=== PATIENT | male | born 1950 | race Caucasian/White ===

== ENCOUNTER 2020-04-11 20:07 | Emergency (ER) | payer MEDICARE ==
[2020-04-11] MEDS ORDERED: Amidate 20 MG/10 ML IV ONE (20:08)
[2020-04-11] MEDS ORDERED: Narcan 0.4 MG/ML IV ONE (20:13)
[2020-04-11 20:27] LABS: Absolute Neutrophil Ct (ANC) 3.59 (1.4-6.9); BASOPHIL % 0.6 % (0.0-0.4); Basophil (Absolute #) 0.04 (0-0.4); Eosinophil % 1.3 % (0.00-5.0); Eosinophil (Absolute #) 0.08 (0-0.5); Hematocrit 39.5 % (42-50); Hemoglobin 13.7 gm/dl (12.5-18.0); Lymphocyte (Absolute #) 1.89 (1.0-4.6); Lymphocytes % 29.9 % (24.0-44.0); Mean Cell Volume 97.3 fl (78-100); Mean Corpuscular Hemoglobin 33.7 pg (26-32); Mean Corpuscular Hgb Concent. 34.7 g/dl (32-36); Monocyte (Absolute #) 0.72 (0.0-1.3); Monocytes % 11.4 % (0.0-12.0); Neutrophil % 56.8 % (36.0-66.0); Platelet Count 143 K/mm3 (150-450); Red Blood Count 4.06 M/mm3 (4.1-5.6); Red Cell Distribution Width 12.5 % (11.5-14.0); White Blood Count 6.3 K/mm3 (4.0-10.5)
[2020-04-11 20:28] LABS: A-aADO2 -7; ABG HEMOGLOBIN 14.4; ABG POTASSIUM 3.1 (3.5-5.1); ABG SITE RIGHT BRACHIAL; ARTERIAL BLD GAS O2 SATURATION 97.6 % (95-100); ARTERIAL BLOOD GAS BASE EXCESS -2.7 (-2.0-2.0); ARTERIAL BLOOD GAS FIO2 21 %; ARTERIAL BLOOD GAS PCO2 40 mmHg (35-45); ARTERIAL BLOOD GAS PO2 107 mmHg (75-100); ARTERIAL BLOOD GAS pH 7.36 (7.35-7.45); CARBOXYHEMOGLOBIN 3.4 % THgb (0.0-6.9); HCO3- 22.6 (22-28); HGB O2 SAT 93.1 g/dF (94-100); Methhemoglobin 1.3 % (1.4-1.5); paO2 pAO1 1.07
[2020-04-11 20:33] LABS: Appearance CLEAR (CLEAR); Bilirubin NEGATIVE (NEGATIVE); Blood NEGATIVE Ery/ul (0-5); Glucose >=500 mg/dL (NEGATIVE); Ketones TRACE (NEGATIVE); Leukocyte Esterase NEGATIVE (NEGATIVE); Mucus SLIGHT /HPF (NEGATIVE); Nitrite NEGATIVE (NEGATIVE); Protein,Urine Dip NEGATIVE (Negative); Specific Gravity 1.015 (1.005-1.025); Urobilinogen NEGATIVE mg/dL (0-1)
[2020-04-11 20:34] LABS: INR 1.2 (0.8-3.0); PROTIME 13.6 SECONDS (8.83-12.87)
[2020-04-11 20:37] LABS: PTT 28.5 SECONDS (24.1-36.1)
[2020-04-11 20:39] LABS: ALBUMIN 3.8 g/dL (3.5-5.0); ALKALINE PHOSPHATASE 54 U/L (38-126); ANION GAP 13.1 MEQ/L (5-15); BLOOD UREA NITROGEN 12 mg/dL (9-20); CHLORIDE 109 mmol/L (98-107); Carbon Dioxide 21 mmol/L (22-30); Creatinine 1 0.61 mg/dL (0.66-1.25); EST GLOMERULAR FILTRATION RATE > 60.0 ML/MIN; Glucose 183 mg/dL (74-106); Potassium 3.6 mmol/L (3.5-5.1); SGOT/AST 28 U/L (17-59); SGPT/ALT 34 U/L (0-50); SODIUM 139 mmol/L (137-145); Total Protein 6.3 g/dL (6.3-8.2)
[2020-04-11 20:46] LABS: Amphetamine,Urine NEGATIVE (NEGATIVE); Barbiturate,Urine NEGATIVE (NEGATIVE); Benzodiazepine,Urine NEGATIVE (NEGATIVE); Cocaine,Urine NEGATIVE (NEGATIVE); Methadone,Urine NEGATIVE (NEGATIVE); Opiate,Urine NEGATIVE (NEGATIVE); PCP,Urine NEGATIVE (NEGATIVE); THC,Urine NEGATIVE (NEGATIVE)
[2020-04-11 20:53] LABS: ETHYL ALCOHOL 349 mg/dL (0-10)
[2020-04-11] MEDS ORDERED: Sodium Chloride 0.9% 1000 ML 1,000 ML ONE (20:53)
[2020-04-11] MEDS ORDERED: Sodium Chloride 0.9% 1000 ML 1,000 ML IV SCH (21:00)
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
[2020-04-11 23:08] LABS: A-aADO2 111; ABG HEMOGLOBIN 15.8; ABG POTASSIUM 3.7 (3.5-5.1); ABG SITE RIGHT BRACHIAL; ARTERIAL BLD GAS O2 SATURATION 98.7 % (95-100); ARTERIAL BLOOD GAS BASE EXCESS 0.2 (-2.0-2.0); ARTERIAL BLOOD GAS FIO2 40 %; ARTERIAL BLOOD GAS PCO2 51 mmHg (35-45); ARTERIAL BLOOD GAS PO2 110 mmHg (75-100); ARTERIAL BLOOD GAS pH 7.33 (7.35-7.45); CARBOXYHEMOGLOBIN 1.2 % THgb (0.0-6.9); HCO3- 26.9 (22-28); HGB O2 SAT 96.5 g/dF (94-100)
[2020-04-12 00:37] LABS: A-aADO2 135; ABG HEMOGLOBIN 15.4; ABG POTASSIUM 3.7 (3.5-5.1); ABG SITE LEFT BRACHIAL; ARTERIAL BLD GAS O2 SATURATION 97.6 % (95-100); ARTERIAL BLOOD GAS BASE EXCESS -0.7 (-2.0-2.0); ARTERIAL BLOOD GAS FIO2 40 %; ARTERIAL BLOOD GAS PCO2 49 mmHg (35-45); ARTERIAL BLOOD GAS PO2 89 mmHg (75-100); ARTERIAL BLOOD GAS pH 7.33 (7.35-7.45); CARBOXYHEMOGLOBIN 0.5 % THgb (0.0-6.9); HCO3- 25.8 (22-28); HGB O2 SAT 95.9 g/dF (94-100); Methhemoglobin 1.2 % (1.4-1.5)
[2020-04-12] MEDS ORDERED: Sodium Chloride 0.9% 1000 ML 1,000 ML ONE (01:26)
[2020-04-12] MEDS ORDERED: Sodium Chloride 0.9% 1000 ML 1,000 ML IV STA (01:30)
[2020-04-12 02:24] LABS: A-aADO2 170; ABG HEMOGLOBIN 13.8; ABG POTASSIUM 3.6 (3.5-5.1); ARTERIAL BLD GAS O2 SATURATION 99.4 % (95-100); ARTERIAL BLD GAS TIDAL VOLUME 700 cc; ARTERIAL BLOOD GAS BASE EXCESS -2.5 (-2.0-2.0); ARTERIAL BLOOD GAS FIO2 50 %; ARTERIAL BLOOD GAS PCO2 35 mmHg (35-45); ARTERIAL BLOOD GAS PO2 143 mmHg (75-100); ARTERIAL BLOOD GAS VENT MODE A/C; CARBOXYHEMOGLOBIN 0.8 % THgb (0.0-6.9); HCO3- 21.7 (22-28); HGB O2 SAT 97.7 g/dF (94-100); Lactic Acid 2.4 (0.4-2.0); Methhemoglobin 0.9 % (1.4-1.5); paO2 pAO1 0.46
[2020-04-12 02:25] LABS: ABG SITE LEFT BRACHIAL; ARTERIAL BLOOD GAS VENT RATE 16 /MIN
[2020-04-12 03:23] VITALS: O2SAT 95
[2020-04-12 03:25] VITALS: BP 124/82; PULSE 74
--- NOTE | 2020-04-12 08:37 | XRAY ---
Indication: Found unresponsive. Stroke. Multiple contiguous axial images obtained through the head without contrast. Comparison: None Age-appropriate global atrophy. No acute intracranial hemorrhage, abnormal extra-axial fluid collection, or mass effect. Fourth ventricle is midline without hydrocephalus. Varma-white matter differentiation preserved. Bony calvarium intact. Minimal mucosal thickening of both maxillary sinuses and 1.5 cm right maxillary sinus polyp/retention cyst. Mastoid air cells are clear. Impression: Atrophy within normal limits for patient's age. No acute intracranial abnormalities. Incidental paranasal sinus disease.
--- NOTE | 2020-04-12 08:39 | XRAY ---
Indication: Found unresponsive. Stroke. Multiple contiguous axial images obtained through the cervical spine. Sagittal and coronal reformatted images obtained. Comparison: None Osseous structures demineralized. Axial images negative for acute fracture, suspicious bony lesions, or spinal canal stenosis. There is mild multilevel degenerative endplate spurring. Also mild/moderate multilevel bilateral degenerative facet hypertrophy. Sagittal and coronal reformatted images demonstrates normal alignment with vertebral body heights/disc spaces maintained. No acute compression fracture, subluxation, or jumped facet. Normal appearing craniocervical junction. Visualized noncontrasted soft tissues demonstrates minimal left carotid calcifications and minimal biapical fibrosis/scarring. CT head reported separately. Impression: 1. Negative for acute fracture/fixation. 2. Osteopenia and multilevel degenerative changes.
--- NOTE | 2020-04-12 08:40 | XRAY ---
Indication: Tube placement. Comparison: None Portable chest demonstrates endotracheal tube tip 4 cm above the sage and right hemidiaphragm elevation with right base subsegmental atelectasis. Remaining heart and lungs unremarkable. Bony thorax intact with mild osteopenia and degenerative changes.
--- NOTE | 2020-04-12 08:45 | XRAY ---
Indication: Found unresponsive. Stroke. Dementia. Blood alcohol 345. Conventional contrast enhanced CTA brain performed using 80 cc Isovue 370 contrast. Two-dimensional sagittal and coronal reformatted images obtained. Comparison: None CT head without contrast reported separately. Distal internal carotid arteries are normal in course and caliber with normal carotid terminus. Normal branching A1 and M1 segments bilaterally. More distal anterior cerebral, middle cerebral, anterior communicating, and posterior communicating arteries are normal in CTA appearance. Posterior circulation demonstrates bilaterally patent distal vertebral arteries with the right slightly larger in size. Normal CTA appearance to the basilar artery with normal branching posterior cerebral and superior cerebellar arteries bilaterally. Venous system unremarkable. Whole brain images are negative for abnormal enhancing intra or extra-axial mass. Impression: Normal CTA brain with contrast exam. Comment: Preliminary interpretation was made by [facility]. No critical discrepancy.
== END 2020-04-12 02:30 | disposition short-term general hospital (02) ==
LOC: ED 20:07
DX: F10.129 Alcohol abuse with intoxication, unspecified (principal); F03.90 Unspecified dementia, unspecified severity, without behavioral disturbance, psychotic disturbance, mood disturbance, and anxiety; Z79.899 Other long term (current) drug therapy; E10.9 Type 1 diabetes mellitus without complications
CPT/HCPCS: 36000; 36415; 36600; 51702; 70450; 70496; 71045; 72125; 80053; 80307; 81001; 82375; 82803; 82962; 83605; 84484; 85025; 85610; 85730; 87086; 93005; 93041; 94002; 94760; 94799; 96360; 96361; 96374; 99285; 99291; 99292; G0480; 96375; J2310

== ENCOUNTER 2023-12-23 17:24 | Emergency (ER) | payer MEDICARE ==
[2023-12-23 17:39] VITALS: RESP 18; TEMP 96
--- NOTE | 2023-12-23 17:48 | ERPHSYRPT ---
- History of Present Illness Time Seen by Provider: 12/23/23 17:30 Source: patient, other () Exam Limitations: no limitations Patient Subjective Stated Complaint: Laceration Triage Nursing Assessment: Patient ambulated back to ED and transferred self to bed. Patient A+O X 3 with intermittent confusion. Patient has dx of dementia per . Patient's reports patient was standing on a trailer that hauls water when he was standing on trailer and he was taking straps off and a strap flew and cut the left side of head. Patient has 3.5cm laceration to left side of head. Patient denies pain or discomfort. Physician History: patient is a 73-year-old gentleman who slipped off the back of a low trailer hitting his left parietal area causing a 3.5 cm lacerations. There was no LOC, and pain is minimal. He has a mild headache but denies nausea, vomiting, cervical pain, thoracic pain, lumbar pain, chest pain, abdominal pain, upper extremity pain, bilateral hip pain, or lower extremity pain. He is not on any anticoagulants. Occurred: just prior to arrival Severity: mild Head Injury Location: parietal ( Left parietal) Method of Injury: fell Loss of Consciousness: no loss of consciousness Associated Symptoms: denies symptoms Allergies/Adverse Reactions: No Known Drug Allergies Allergy (Verified 12/23/23 17:30) Home Medications: Aspirin EC 81 mg [Ecotrin 81 mg] 81 mg PO DAILY 04/11/20 [History] Atorvastatin Calcium 40 mg PO HS 04/11/20 [History] Cetirizine HCl 10 mg PO DAILY 04/11/20 [History] Cholecalciferol (Vitamin D3) [Vitamin D3] 1,000 unit PO DAILY 04/11/20 [History] Donepezil HCl 10 mg PO HS 04/11/20 [History] Magnesium 250 mg PO DAILY 04/11/20 [History] Meclizine HCl 25 mg [Antivert 25 mg] 25 mg PO TID 04/11/20 [History] Memantine HCl 10 mg PO BID 04/11/20 [History] Metformin HCl 850 mg [Glucophage 850 MG] 850 mg PO BID 04/11/20 [History] [place]-3 Fatty Acids/Fish Oil [Fish Oil 1,000 mg Capsule] 1,000 mg PO DAILY 10/12/20 [History] glipiZIDE [Glipizide] 5 mg PO DAILY 04/11/20 [History] Hx Tetanus, Diphtheria Vaccination/Date Given: No Hx Influenza Vaccination/Date Given: No Hx Pneumococcal Vaccination/Date Given: No Immunizations Up to Date: Yes Travel Risk - International Travel Have you traveled outside of the country in past 3 weeks: No - Emerging Infectious Disease Are you exhibiting symptoms associated with any current EIDs: No - Review of Systems Constitutional: No Symptoms Eyes: No Symptoms Ears, Nose, & Throat: No Symptoms Respiratory: No Symptoms Cardiac: No Symptoms Abdominal/Gastrointestinal: No Symptoms Genitourinary Symptoms: No Symptoms Musculoskeletal: No Symptoms Skin: No Symptoms Psychological: No Symptoms Endocrine: No Symptoms Hematologic/Lymphatic: No Symptoms Immunological/Allergic: No Symptoms - Past Medical History Pertinent Past Medical History: Yes Neurological History: Dementia ENT History: Cataracts Cardiac History: High Cholesterol, Myocardial Infarction (HI) Respiratory History: No Pertinent History Endocrine Medical History: Diabetes Type I Musculoskeletal History: Arthritis GI Medical History: No Pertinent History History: No Pertinent History Psycho-Social History: No Pertinent History Male Reproductive Disorders: No Pertinent History Other Medical History: Dementia - Past Surgical History Past Surgical History: Yes Neuro Surgical History: No Pertinent History Cardiac: Cardiac Catheterization Respiratory: No Pertinent History Gastrointestinal: Appendectomy Genitourinary: No Pertinent History Musculoskeletal: No Pertinent History Male Surgical History: No Pertinent History Significant Family History: no pertinent family hx - Social History Smoking Status: Never smoker Exposure to second hand smoke: No Drug Use: none Patient Lives Alone: No - Social Determinants of Health Will the patient participate in the screening: Yes Do you worry about a steady place to live?: No Do you have any problems with any of the following?: No known problems In the past 12 months,have you had to go without utilities?: No Transportation Issues: No Has anyone in your support network made you feel unsafe?: No Have you or anyone in your house had to go without enough: No - Nursing Vital Signs Nursing Vital Signs: Initial Vital Signs Temperature 96.0 F 12/23/23 17:30 Pulse Rate 72 12/23/23 17:30 Respiratory Rate 18 12/23/23 17:30 Blood Pressure 115/81 12/23/23 17:30 O2 Sat by Pulse Oximetry 96 12/23/23 17:30 Pain Scale Pain Intensity 0 WNL - Shaan Coma Score Best Eye Response ([place]): (4) open spontaneously Best Verbal Response ([place]): (5) oriented Best Motor Response ([place]): (6) obeys commands Shaan Total: 15 - Physical Exam General Appearance: no apparent distress Head Injury: lacerations ( 3.5 cm laceration left parietal area) Eye Exam: bilateral eye: normal inspection, PERRL, EOMI ENT Exam: airway nml, No evidence of ENT injury, No clear fluid (ears), No clear fluid (nose) Neck Exam: supple, trachea midline, normal inspection ( C-spine nontender to palpate) Cardiovascular/Respiratory Exam: chest non-tender, normal breath sounds, regular rate/rhythm, heart sounds normal Gastrointestinal/Abdominal Exam: soft, non tender Back Exam: normal inspection, vertebral tenderness ( no T or L-spine tenderness palpation) Extremity Exam: non-tender, normal range of motion, normal capillary refill Mental Status Exam: alert, oriented x 3, cooperative transit mechanic Exam: normal hearing, normal speech, PERRL Coordination/Gait Exam: normal gait, negative Romberg's sign Motor/Sensory Exam: no motor deficit, no sensory deficit, no pronator drift, negative Babinski's sign, CN II-XII intact, No pronator drift (R), No pronator drift (L), No sensory deficit DTR Exam: bicep (R): 2+, bicep (L): 2+ Skin Exam: normal color, warm, dry Lymphatic Exam: No adenopathy SpO2 Interpretation: normal SpO2: 96 O2 Delivery: Room Air Procedures - Laceration/Wound Repair Parietal Time of Procedure: 23:03 Wound Location: Left (Left parietal) Wound Length (cm): 3 Wound's Depth, Shape: linear Wound Explored: clean Irrigated: Yes Hibiclens Prep: Yes Wound Repaired With: Regent ( dewayne x 6) Layer Closure?: No Sterile Dressing Applied?: No - Course Nursing assessment & vital signs reviewed: Yes - CT Exams Head CT Interpretation: Discussed w/radiologist (Tiny left scalp laceration otherwise negative per Dr. Dominguez) Ordered Tests: Active Orders 24 hr Category Date Time Status HEAD WITHOUT CONTRAST [CT] Stat Exams 12/23/23 17:43 Taken Medication Summary Discontinued Medications Generic Name Dose Route Start Last Admin Trade Name Freq PRN Reason Stop Dose Admin Diphtheria/Tetanus/Acell Pertussis 0.5 ml 12/23/23 17:44 12/23/23 18:28 Tdap --Diph,Pertuss(Acell),Tet Vac/Pf 0.5 Ml Vial IM 12/23/23 17:45 0.5 ml .ONCE ONE Administration Diphtheria/Tetanus/Acell Pertussis Confirm 12/23/23 18:26 Tdap --Diph,Pertuss(Acell),Tet Vac/Pf 0.5 Ml Vial Administered 12/23/23 18:27 Dose 0.5 ml IM .[facility] ([employer] ONE - Progress Progress: improved Progress Note: 12/23/23 19:29 nursing note and vital signs reviewed. No food or housing insecurity noted. Additional history per . CT result reviewed and shared with patient/. 3 cm left parietal scalp laceration irrigated and cleansed with Hibiclens per nursing/dewayne x 6 per ER physician/no complications/patient agreed to staple without local anesthetic which tends to hurt more/ advised to have dewayne removed in 10 days/ keep dry for 3 days and then gently wash 1-2 times a day with mild soap and water without scrubbing/ advised to watch for signs of infection- increasing pain, any pus, temperature greater 100.5, or increasing redness. Serial neurologic exams in ER without focal weakness and a Glascow co ma score 15. Discharged in stable condition. Counseled pt/family regarding: diagnosis, need for follow-up, rad results Medical Desision Making - Independent Historian Additional History obtained from: Spouse - Diagnostic Testing Radiological Interpretation: Reviewed by me - Risk of complications Low Risk: Low risk of morbidity from additional dx testing or treatment The pt has a mod risk of morbidity or mortality based on: Need for prescription drug management - Departure Departure Disposition: Home Clinical Impression: Scalp laceration, Minor closed head injury Condition: Stable Critical Care Time: No Referrals: NICKI GONZALEZ MD [Primary Care Provider] - Follow up/PCP as directed Instructions: Laceration Repair With Dewayne (DC), Minor Head Injury, Adult ED Additional Instructions: Keep laceration dry for 3 days, then gently wash with mild soap and water 1-2 times a day but do not scrub Regent out in 10 days. Watch for signs of infection- increasing pain, any pus, increasing redness, or temperature greater 100.5. Tylenol for pain
[2023-12-23] MEDS ORDERED: Adacel Vial IM ONE (18:26)
[2023-12-23] MEDS: Adacel Vial IM ONE (18:28)
[2023-12-23 19:26] VITALS: O2SAT 96
[2023-12-23 19:42] VITALS: BP 93/66; PULSE 76
--- NOTE | 2023-12-24 08:35 | XRAY ---
Indication: Head injury/laceration following fall. Multiple contiguous axial images obtained through the head without contrast. Comparison: April 11, 2020 Tiny left parietal scalp laceration. Normal appearing brain parenchyma, ventricles, and bony calvarium for patient's age. Visualized paranasal sinuses and mastoid air cells are clear. Impression: Tiny left parietal scalp laceration. No underlying fracture or acute intracranial abnormalities.
== END 2023-12-23 19:44 | disposition home or self-care (01) ==
LOC: ED 17:24
DX: S01.01XA Laceration without foreign body of scalp, initial encounter (principal); S09.90XA Unspecified injury of head, initial encounter; W20.8XXA Other cause of strike by thrown, projected or falling object, initial encounter; E78.5 Hyperlipidemia, unspecified; E10.9 Type 1 diabetes mellitus without complications; Z79.84 Long term (current) use of oral hypoglycemic drugs; Z79.899 Other long term (current) drug therapy; Z23 Encounter for immunization
CPT/HCPCS: 12002; 70450; 90471; 90715; 99284